=== PATIENT | male | born 1985 | race American Indian/Alaskan Native ===

== ENCOUNTER 2016-11-04 13:24 | Emergency (ER) | payer MEDICARE ==
[2016-11-04] MEDS ORDERED: PEPCID PO ONE (14:30)
[2016-11-04 16:59] LABS: Basophils % (Auto) 0.5 % (0.0-1.8); Eosinophils % (Auto) 13.7 % (0.0-4.3); Hematocrit 32.1 % (35.5-45.6); Hemoglobin 10.1 gm/dl (11.8-15.2); Mean Corpuscular HGB Conc 32 % (32-34); Mean Corpuscular Hemoglobin 31 pg (28-32); Mean Corpuscular Volume 97 fl (84-94); Platelet Count 145 K/mm3 (140-440); Red Cell Distribution Width 14.7 % (13.2-15.2); White Blood Count 7.3 K/mm3 (4.5-11.0)
--- NOTE | 2016-11-04 17:09 | Emergency Department Report ---
ED General Adult HPI - General Chief complaint: Chest Pain Stated complaint: ABD PAIN Time Seen by Provider: 11/04/16 14:23 Source: patient, EMS, RN notes reviewed Mode of arrival: Stretcher Limitations: Other (poor historian) - History of Present Illness Initial comments: primary care graphic specialist: Dr. Loepz Past medical history: Prader-Willi syndrome, diabetes, end-stage renal disease on dialysis, renal osteodystrophy, secondary hyperparathyroidism, mild chronic anemia, left upper extremity AV fistula This is a 31-year-old male. I have evaluated him in the past. Patient is brought to the hospital today by EMS for evaluation of chest pain. Patient indicates that his chest pain has resolved. It started at 8:00 in the morning. Patient indicates that he currently has no chest pain, nausea, vomiting. He also indicates no shortness of breath. Of note, patient has had similar presentations, and was evaluated for similar complaints to this in August 2016. As per documentation, "patient is a complaining of various elements to get attention." When I speak to the patient, he is smiling, laughing, and asking for something to eat. He indicates no vomiting, no shortness of breath, no chest pain, no abdominal pain. Symptoms have all resolved. He requested. -: This morning Location: abdomen Radiation: non-radiation Severity scale (0 -10): 6 Improves with: none Worsens with: none Associated Symptoms: denies other symptoms - Related Data Home Medications Medication Instructions Recorded Confirmed Last Taken Cinacalcet [Sensipar] 30 mg PO QDAY 07/19/13 11/04/16 07/18/13 22:00 Enalapril Maleate [Vasotec] 5 mg PO DAILY 07/19/13 11/04/16 07/18/13 22:00 Sevelamer Carbonate [Renvela] 800 mg PO TIDWM 07/19/13 11/04/16 07/18/13 22:00 Vitamin B Comp and C/FA/Zn Cit 0.8 mg PO DAILY 07/19/13 11/04/16 07/18/13 22:00 [Dialyvite 800 with Zinc] Ergocalciferol(Vitamin D2)(Nf) 1.25 mg pe PO DAILY 11/04/16 11/04/16 Unknown [Vitamin D (Nf)] Allergies Allergy/AdvReac Type Severity Reaction Status Date / Time No Known Allergies Allergy Unverified 11/04/16 14:07 ED Review of Systems ROS: Stated complaint: ABD PAIN Other details as noted in HPI Constitutional: denies: fever Eyes: denies: eye discharge ENT: denies: epistaxis Respiratory: denies: cough Cardiovascular: as per HPI Gastrointestinal: abdominal pain Genitourinary: as per HPI Musculoskeletal: denies: back pain Skin: denies: lesions Neurological: denies: weakness Psychiatric: as per HPI ED Past Medical Hx - Past Medical History Previous Medical History?: Yes Hx Hypertension: Yes Hx Diabetes: Yes Hx Renal Disease: Yes (graft left arm Sat) Hx Psychiatric Treatment: Yes (pearly-malgorzata syndrome) Additional medical history: Anemia. Ischemic heart disease. ESRD - Surgical History Past Surgical History?: Yes Additional Surgical History: graft left arm, denies abdominal surgeries - Social History Smoking Status: Unknown if ever smoked Substance Use Type: None - Medications Home Medications: Home Medications Medication Instructions Recorded Confirmed Last Taken Type Cinacalcet [Sensipar] 30 mg PO QDAY 07/19/13 11/04/16 07/18/13 22:00 History Enalapril Maleate [Vasotec] 5 mg PO DAILY 07/19/13 11/04/16 07/18/13 22:00 History Sevelamer Carbonate [Renvela] 800 mg PO TIDWM 07/19/13 11/04/16 07/18/13 22:00 History Vitamin B Comp and C/FA/Zn Cit 0.8 mg PO DAILY 07/19/13 11/04/16 07/18/13 22:00 History [Dialyvite 800 with Zinc] Ergocalciferol(Vitamin D2)(Nf) 1.25 mg pe PO DAILY 11/04/16 11/04/16 Unknown History [Vitamin D (Nf)] ED Physical Exam - General Limitations: Other (poor historian) General appearance: alert, in no apparent distress - Head Head exam: Present: atraumatic, normocephalic - Eye Eye exam: Present: normal appearance, EOMI. Absent: nystagmus - ENT ENT exam: Present: normal exam, normal orophraynx, mucous membranes moist, normal external ear exam - Neck Neck exam: Present: normal inspection, full ROM. Absent: tenderness, meningismus - Respiratory Respiratory exam: Present: normal lung sounds bilaterally. Absent: respiratory distress, wheezes, rales, rhonchi, stridor, decreased breath sounds - Cardiovascular Cardiovascular Exam: Present: regular rate, normal rhythm, normal heart sounds. Absent: bradycardia, tachycardia, irregular rhythm, systolic murmur, diastolic murmur, rubs, gallop - GI/Abdominal GI/Abdominal exam: Present: soft, normal bowel sounds. Absent: distended, guarding, rebound, rigid, pulsatile mass - Rectal Rectal exam: Present: deferred - Extremities Exam Extremities exam: Present: normal inspection, full ROM, normal capillary refill , pedal edema (I'll chronic pedal edema. No palpable cord. Negative Homans sign. Left upper extremity AV fistula appreciated. A positive thrill.). Absent: tenderness, calf tenderness - Back Exam Back exam: Present: normal inspection - Neurological Exam Neurological exam: Present: alert, other (Extraocular movements intact. Tongue midline. No facial droop. Facial sensation intact to light touch in the V1, V2 , V3 distribution bilaterally. 5 and 5 strength in 4 extremities.. Sensation is intact to light touch in 4 extremities.). Absent: motor sensory deficit - Psychiatric Psychiatric exam: Present: normal affect, normal mood - Skin Skin exam: Present: warm, dry, intact, normal color. Absent: rash ED Course Vital Signs 11/04/16 11/04/16 11/04/16 13:50 14:10 19:15 Temperature 98.6 F Pulse Rate 74 Respiratory 16 16 16 Rate Blood Pressure 159/77 Blood Pressure 159/77 112/72 [Right] O2 Sat by Pulse 100 100 95 Oximetry - Reevaluation(s) Reevaluation #1: 11/04/16 17:07 Differential diagnosis: GERD, gastritis, pneumonia, reflux, acute coronary syndrome, attention seeking behavior assessment and plan: 31-year-old male with resolved completely of epigastric discomfort. Has had a similar presentation in the past. He is afebrile with reassuring vital signs. He is clinically well-appearing, smiling, laughing, it indicates no distress. Found to be incidentally mildly hypoglycemic, is currently tolerating oral feeds. Laboratory studies were drawn within 8 hours after symptom onset. Patient was a difficult IV stick. Currently awaiting laboratory studies. There is no tachycardia, there is no hypoxia, there is no shortness of breath, lower extremities appear to be at baseline. Therefore think thromboembolic disease is unremarkable. Given that laboratory studies were drawn more than 8 hours after symptom onset, as per the [employer] clinical policy, myocardial infarction may be excluded with 1 set of cardiac enzymes. 11/04/16 17:10 Reevaluation #2: 11/04/16 18:21 repeat Accu-Cheks/fingerstick within normal limits. Patient resting comfortably. No active vomiting. Will be discharged. ED Medical Decision Making - Lab Data Result diagrams: 11/04/16 16:45 11/04/16 16:45 Vital Signs 11/04/16 11/04/16 13:50 14:10 Temperature 98.6 F Pulse Rate 74 Respiratory 16 16 Rate Blood Pressure 159/77 Blood Pressure 159/77 [Right] O2 Sat by Pulse 100 100 Oximetry Lab Results 11/04/16 11/04/16 11/04/16 Range/Units 16:45 16:45 16:56 WBC 7.3 (4.5-11.0) K/mm3 RBC 3.30 L (3.65-5.03) M/mm3 Hgb 10.1 L (11.8-15.2) gm/dl Hct 32.1 L (35.5-45.6) % MCV 97 H (84-94) fl MCH 31 (28-32) pg MCHC 32 (32-34) % RDW 14.7 (13.2-15.2) % Plt Count 145 (140-440) K/mm3 Lymph % (Auto) 29.0 (13.4-35.0) % [place] % (Auto) 8.7 H (0.0-7.3) % Eos % (Auto) 13.7 H (0.0-4.3) % Baso % (Auto) 0.5 (0.0-1.8) % Lymph # 2.1 (1.2-5.4) K/mm3 [place] # 0.6 (0.0-0.8) K/mm3 Eos # 1.0 H (0.0-0.4) K/mm3 Baso # 0.0 (0.0-0.1) K/mm3 Seg Neutrophils % 48.1 (40.0-70.0) % Seg Neutrophils # 3.5 (1.8-7.7) K/mm3 PT 13.3 (12.2-14.9) Sec. INR 1.02 (0.87-1.13) POC Glucose 68 L (70-105) - EKG Data -: EKG Interpreted by Me EKG shows normal: sinus rhythm, axis, intervals, QRS complexes, ST-T waves Rate: normal - EKG Data When compared to previous EKG there are: no significant change, changes noted Interpretation: unchanged when compared t (08/10/2016) - Radiology Data Radiology results: image reviewed interpreted by me: X-ray of the chest was negative Critical care attestation.: If time is entered above; I have spent that time in minutes in the direct care of this critically ill patient, excluding procedure time. ED Disposition Clinical Impression: ESRD (end stage renal disease) on dialysis, Epigastric abdominal pain Disposition: DISCHARGED TO HOME OR SELFCARE Is pt being admited?: No Does the pt Need Aspirin: No Condition: Stable Instructions: Chronic Kidney Disease (ED) Additional Instructions: Continue current outpatient medications. Follow up with her primary care doctor or graphic specialist within the next week. If chest pain persists, follow up with her vp data within the next week. Please note that blood pressure was elevated. This should be followed up by a primary care doctor or vp data or graphic specialist within the next 2 weeks. Long-term complications of hypertension/elevated blood pressure include stroke, heart attack, disability, , paralysis, loss of quality of life. Return to the ER right away with hip pain, worsened pain, migration of pain, fevers or chills, intractable nausea or vomiting, inability to tolerate liquid feeds. I have listed numerous names, phone numbers, addresses of local management development specialist for you to follow up with his Referrals: GARO NUNES MD [Primary Care Provider] - 3-5 Days RAUL CEVALLOS MD [Staff Physician] - 3-5 Days BARBARA GABRIEL MD [Staff Physician] - 3-5 Days LEX DONNELLY MD [Staff Physician] - 3-5 Days
[2016-11-04 17:10] LABS: INR 1.02 (0.87-1.13)
[2016-11-04 17:22] LABS: Albumin 3.6 g/dL (3.9-5); Albumin/Globulin Ratio 1.2 %; BUN/Creatinine Ratio 4.9; Bilirubin,Total 0.2 mg/dL (0.1-1.2); Calcium 8.7 mg/dL (8.4-10.2); Chloride 96.6 mmol/L (98-107); Potassium 3.9 mmol/L (3.6-5.0); Total Protein 6.5 g/dL (6.3-8.2)
[2016-11-04 19:17] VITALS: BP 112/72
--- NOTE | 2016-11-05 09:45 | XRay Report ---
ROUTINE CHEST, TWO VIEWS: HISTORY: chest pain. The trachea, heart, mediastinal contour, lung cortes and bony thorax are unremarkable. IMPRESSION: Unremarkable chest x-ray.
== END 2016-11-04 20:58 | disposition home or self-care (01) ==
LOC: ED 13:24
DX: I12.0 Hypertensive chronic kidney disease with stage 5 chronic kidney disease or end stage renal disease (principal); N18.6 End stage renal disease; R10.13 Epigastric pain; E11.9 Type 2 diabetes mellitus without complications; I25.9 Chronic ischemic heart disease, unspecified; Z99.2 Dependence on renal dialysis
CPT/HCPCS: 36415; 71020; 80053; 82962; 83690; 84484; 85025; 85610; 93005; 93010; 99285

== ENCOUNTER 2017-03-19 19:21 | Emergency (ER) | payer MEDICARE ==
[2017-03-19] MEDS ORDERED: LIDOCAINE VISCOUS 2% PO ONE (20:33)
[2017-03-19] MEDS ORDERED: ALUM-MAG HYDROX-SIMETH 200-200-20MG/5ML PO ONE (20:33)
[2017-03-19 21:02] LABS: BUN/Creatinine Ratio 3.87; Calcium 8.2 mg/dL (8.4-10.2); Chloride 100.5 mmol/L (98-107)
[2017-03-19 21:03] LABS: Basophils % (Auto) 0.6 % (0.0-1.8); Eosinophils % (Auto) 12.5 % (0.0-4.3); Hematocrit 37.3 % (35.5-45.6); Hemoglobin 11.8 gm/dl (11.8-15.2); Mean Corpuscular HGB Conc 32 % (32-34); Mean Corpuscular Hemoglobin 31 pg (28-32); Mean Corpuscular Volume 98 fl (84-94); Platelet Count 155 K/mm3 (140-440); Red Cell Distribution Width 15.4 % (13.2-15.2); White Blood Count 5.8 K/mm3 (4.5-11.0)
[2017-03-19 21:27] LABS: Potassium 5.1 mmol/L (3.6-5.0)
[2017-03-19 21:31] LABS: Alanine Aminotransferase 15 units/L (7-56); Albumin 3.4 g/dL (3.9-5); Albumin/Globulin Ratio 0.9 %; Alkaline Phosphatase 207 units/L (35-129); Lipase 53 units/L (13-60)
[2017-03-19 21:33] LABS: Bilirubin,Direct < 0.2 mg/dL (0-0.2); Bilirubin,Indirect 0.2 mg/dL
--- NOTE | 2017-03-19 21:55 | Emergency Department Report ---
ED Chest Pain HPI - General Chief Complaint: Chest Pain Stated Complaint: HEARTBURN/HEADACHE Time Seen by Provider: 03/19/17 20:19 Source: patient, EMS, RN notes reviewed Mode of arrival: Stretcher Limitations: Other - History of Present Illness Initial Comments: 31-year-old male with a past medical history of Luana Willi syndrome, end- stage renal disease on dialysis, diabetes, hypertension, anemia and hypothyroidism presents to the hospital with epigastric pain, chest pain, and throat pain. Symptoms started during dialysis. Patient completed dialysis prior to transport. Symptoms described as heartburn. Patient has limited ability to communicate due to chronic mental delay. Patient states he vomited twice a day. Denies shortness of breath, diarrhea, or fever. Severity scale (0 -10): 7 - Related Data Home Medications Medication Instructions Recorded Confirmed Last Taken Cinacalcet [Sensipar] 30 mg PO QDAY 07/19/13 11/04/16 07/18/13 22:00 Enalapril Maleate [Vasotec] 5 mg PO DAILY 07/19/13 11/04/16 07/18/13 22:00 Sevelamer Carbonate [Renvela] 800 mg PO TIDWM 07/19/13 11/04/16 07/18/13 22:00 Vitamin B Comp and C/FA/Zn Cit 0.8 mg PO DAILY 07/19/13 11/04/16 07/18/13 22:00 [Dialyvite 800 with Zinc] Ergocalciferol(Vitamin D2)(Nf) 1.25 mg pe PO DAILY 11/04/16 11/04/16 Unknown [Vitamin D (Nf)] Previous Rx's Medication Instructions Recorded Last Taken Type Famotidine [Pepcid] 20 mg PO BID #30 tablet 03/19/17 Unknown Rx Allergies Allergy/AdvReac Type Severity Reaction Status Date / Time No Known Allergies Allergy Unverified 11/04/16 14:07 Heart Score - HEART Score History: Slightly suspicious EKG: Normal Age: < 45 Risk factors: 1-2 risk factors Troponin: < normal limit HEART Score: 1 ED Review of Systems ROS: Stated complaint: HEARTBURN/HEADACHE Other details as noted in HPI Comment: All other systems reviewed and negative Other: Constitutional: No fevers chills Eyes: No eye pain visual changes ENT: No ear pain or throat pain Neck: Denies pain Respiratory: Denies cough wheezing shortness of breath Cardiovascular: As per HPI GI: As per HPI : Denies dysuria, urinary frequency, or urgency Musculoskeletal: Denies back pain, joint swelling Skin: Denies rash, lesions, erythema Neurologic: Denies headache, numbness, weakness Psychiatric: Denies suicidal ideation, hallucinations Hematological/lymphatic: Denies easy bruising, lymphadenopathy ED Past Medical Hx - Past Medical History Previous Medical History?: Yes Hx Hypertension: Yes Hx Diabetes: Yes Hx Renal Disease: Yes (graft left arm Sat) Hx Psychiatric Treatment: Yes (Luana Willi syndrome) Additional medical history: Anemia. ESRD. hypoparathyroidism - Surgical History Past Surgical History?: Yes Additional Surgical History: graft left arm, denies abdominal surgeries - Social History Smoking Status: Never Smoker Substance Use Type: Prescribed - Medications Home Medications: Home Medications Medication Instructions Recorded Confirmed Last Taken Type Cinacalcet [Sensipar] 30 mg PO QDAY 07/19/13 11/04/16 07/18/13 22:00 History Enalapril Maleate [Vasotec] 5 mg PO DAILY 07/19/13 11/04/16 07/18/13 22:00 History Sevelamer Carbonate [Renvela] 800 mg PO TIDWM 07/19/13 11/04/16 07/18/13 22:00 History Vitamin B Comp and C/FA/Zn Cit 0.8 mg PO DAILY 07/19/13 11/04/16 07/18/13 22:00 History [Dialyvite 800 with Zinc] Ergocalciferol(Vitamin D2)(Nf) 1.25 mg pe PO DAILY 11/04/16 11/04/16 Unknown History [Vitamin D (Nf)] Famotidine [Pepcid] 20 mg PO BID #30 tablet 03/19/17 Unknown Rx ED Physical Exam - General Limitations: Other - Other Other exam information: General: No limitations, patient is alert in no acute distress Head exam: Atraumatic, normocephalic Eyes exam: Normal appearance ENT: Moist mucous membrane, normal oropharynx Neck exam: Normal inspection, full range of motion, no meningismus nontender Respiratory exam: Clear to auscultation bilateral, no wheezes, rales, crackles. Anterior est wall tenderness to palpation Cardiovascular: Normal rate and rhythm, normal heart sounds Abdomen: Soft, nondistended, epigastric tenderness, with normal bowel sounds, no rebound, or guarding Extremity: Full range of motion normal inspection no deformity Back: Normal Inspection, full range of motion, no tenderness Neurologic: Alert, oriented x3, cranial nerves intact, no motor or sensory deficit Psychiatric: normal affect, normal mood Skin: Warm, dry, intact ED Course Vital Signs 03/19/17 03/19/17 03/19/17 19:46 19:50 20:00 Temperature Pulse Rate 76 68 71 Respiratory 15 13 22 Rate Blood Pressure 156/72 156/72 Blood Pressure [Right] O2 Sat by Pulse 98 97 97 Oximetry 03/19/17 03/19/17 03/19/17 20:03 20:10 20:20 Temperature 98.5 F Pulse Rate 85 80 71 Respiratory 20 16 13 Rate Blood Pressure 156/72 138/66 138/66 Blood Pressure 156/72 [Right] O2 Sat by Pulse 98 96 97 Oximetry 03/19/17 03/19/17 03/19/17 20:30 20:40 20:50 Temperature Pulse Rate 71 76 73 Respiratory 18 22 21 Rate Blood Pressure 138/66 138/66 155/85 Blood Pressure [Right] O2 Sat by Pulse 97 99 96 Oximetry 03/19/17 03/19/17 03/19/17 21:00 21:10 21:20 Temperature Pulse Rate 73 87 85 Respiratory 20 14 13 Rate Blood Pressure 155/85 154/61 176/90 Blood Pressure [Right] O2 Sat by Pulse 99 97 98 Oximetry 03/19/17 03/19/17 03/19/17 21:30 21:40 21:50 Temperature Pulse Rate 74 76 74 Respiratory 20 20 22 Rate Blood Pressure 154/61 164/89 148/67 Blood Pressure [Right] O2 Sat by Pulse 96 98 96 Oximetry 03/19/17 03/19/17 03/19/17 22:00 22:10 22:20 Temperature Pulse Rate 78 73 74 Respiratory 14 23 19 Rate Blood Pressure 176/90 153/63 137/78 Blood Pressure [Right] O2 Sat by Pulse 97 96 99 Oximetry 03/19/17 03/19/17 03/19/17 22:30 22:40 22:45 Temperature Pulse Rate 78 68 82 Respiratory 14 17 Rate Blood Pressure 137/78 143/66 Blood Pressure [Right] O2 Sat by Pulse 85 Oximetry 03/19/17 03/19/17 22:50 23:00 Temperature Pulse Rate 78 73 Respiratory 13 18 Rate Blood Pressure 138/58 138/58 Blood Pressure [Right] O2 Sat by Pulse 96 85 Oximetry - Reevaluation(s) Reevaluation #1: 03/19/17 21:57 Patient given viscous lidocaine and Maalox and reports improvement in symptoms. Patient ate a tray of food. Patient asked for more food. When told that he will be going home patient started complaining of hurting again and more food. - Consultations Consultation #1: 03/19/17 Case was discussed with Dr. Oliver. He was informed that patient will be discharged home the second enzyme was negative APPLE score - Apple Score Age > 65: (0) No Aspirin use within the Past 7 Days: (0) No 3 or more CAD Risk Factors: (0) No 2 or more Angina events in past 24 hrs: (0) No Known CAD with more than 50% Stenosis: (0) No ST Deviation Greater than 0.5mm: (0) No ED Medical Decision Making - Lab Data Result diagrams: 03/19/17 20:20 03/19/17 20:20 Lab Results 03/19/17 03/19/17 03/19/17 Range/Units 20:20 20:20 20:29 WBC 5.8 (4.5-11.0) K/mm3 RBC 3.80 (3.65-5.03) M/mm3 Hgb 11.8 (11.8-15.2) gm/dl Hct 37.3 (35.5-45.6) % MCV 98 H (84-94) fl MCH 31 (28-32) pg MCHC 32 (32-34) % RDW 15.4 H (13.2-15.2) % Plt Count 155 (140-440) K/mm3 Lymph % (Auto) 29.2 (13.4-35.0) % [place] % (Auto) 8.4 H (0.0-7.3) % Eos % (Auto) 12.5 H (0.0-4.3) % Baso % (Auto) 0.6 (0.0-1.8) % Lymph # 1.7 (1.2-5.4) K/mm3 [place] # 0.5 (0.0-0.8) K/mm3 Eos # 0.7 H (0.0-0.4) K/mm3 Baso # 0.0 (0.0-0.1) K/mm3 Seg Neutrophils % 49.3 (40.0-70.0) % Seg Neutrophils # 2.9 (1.8-7.7) K/mm3 Sodium 138 (137-145) mmol/L Potassium 5.1 H (3.6-5.0) mmol/L Chloride 100.5 (98-107) mmol/L Carbon Dioxide 23 (22-30) mmol/L Anion Gap 20 mmol/L BUN 19 (9-20) mg/dL Creatinine 4.9 H (0.8-1.5) mg/dL Estimated GFR 17 ml/min BUN/Creatinine Ratio 3.87 % Glucose 71 L (75-100) mg/dL Calcium 8.2 L (8.4-10.2) mg/dL Total Bilirubin 0.40 (0.1-1.2) mg/dL Direct Bilirubin < 0.2 (0-0.2) mg/dL Indirect Bilirubin 0.2 mg/dL AST 36 (5-40) units/L ALT 15 (7-56) units/L Alkaline Phosphatase 207 H (35-129) units/L Troponin T 0.013 (0.00-0.029) ng/mL Total Protein 7.0 (6.3-8.2) g/dL Albumin 3.4 L (3.9-5) g/dL Albumin/Globulin Ratio 0.9 % Lipase 53 (13-60) units/L //17 Range/Units 23:05 WBC (4.5-11.0) K/mm3 RBC (3.65-5.03) M/mm3 Hgb (11.8-15.2) gm/dl Hct (35.5-45.6) % MCV (84-94) fl MCH (28-32) pg MCHC (32-34) % RDW (13.2-15.2) % Plt Count (140-440) K/mm3 Lymph % (Auto) (13.4-35.0) % [place] % (Auto) (0.0-7.3) % Eos % (Auto) (0.0-4.3) % Baso % (Auto) (0.0-1.8) % Lymph # (1.2-5.4) K/mm3 [place] # (0.0-0.8) K/mm3 Eos # (0.0-0.4) K/mm3 Baso # (0.0-0.1) K/mm3 Seg Neutrophils % (40.0-70.0) % Seg Neutrophils # (1.8-7.7) K/mm3 Sodium (137-145) mmol/L Potassium (3.6-5.0) mmol/L Chloride (98-107) mmol/L Carbon Dioxide (22-30) mmol/L Anion Gap mmol/L BUN (9-20) mg/dL Creatinine (0.8-1.5) mg/dL Estimated GFR ml/min BUN/Creatinine Ratio % Glucose (75-100) mg/dL Calcium (8.4-10.2) mg/dL Total Bilirubin (0.1-1.2) mg/dL Direct Bilirubin (0-0.2) mg/dL Indirect Bilirubin mg/dL AST (5-40) units/L ALT (7-56) units/L Alkaline Phosphatase (35-129) units/L Troponin T 0.016 (0.00-0.029) ng/mL Total Protein (6.3-8.2) g/dL Albumin (3.9-5) g/dL Albumin/Globulin Ratio % Lipase (13-60) units/L - EKG Data -: EKG Interpreted by Me (sinus rate 72 with supraventricular complexes and frequent PVCs.) - EKG Data When compared to previous EKG there are: no significant change (compared to 09/2015) - Radiology Data Radiology results: image reviewed (chest x-ray portable: No acute findings) - Medical Decision Making Pain is atypical. No STEMI on EKG. Patient given 15 g of Kayexalate for mild elevation in potassium. Will be discharged home with follow-up - Differential Diagnosis GERD, [place], unstable angina, reflux Critical Care Time: No Critical care attestation.: If time is entered above; I have spent that time in minutes in the direct care of this critically ill patient, excluding procedure time. ED Disposition Clinical Impression: GERD (gastroesophageal reflux disease), Chest wall pain, End stage renal disease on dialysis, Hyperkalemia Disposition: TO HOME OR SELFCARE Is pt being admited?: No Does the pt Need Aspirin: No Condition: Stable Instructions: Chest Pain (ED), Gastroesophageal Reflux Disease (ED), Hyperkalemia (ED) Additional Instructions: Take the medication as prescribed. Return if symptoms worsen. Take Tylenol as needed for pain. Prescriptions: Famotidine [Pepcid] 20 mg PO BID #30 tablet Referrals: PRIMARY CARE, [Primary Care Provider] - 3-5 Days Time of Disposition: 23:54
[2017-03-19 23:17] VITALS: BP 138/58
[2017-03-19] MEDS ORDERED: KIONEX PO ONE (23:46)
--- NOTE | 2017-03-20 08:01 | XRay Report ---
AP CHEST: HISTORY: chest pain Mild cardiomegaly and pulmonary venous congestion have developed since 11/04/16 exam. The lungs are clear. No evidence for pneumonia, pleural effusion or pneumothorax. IMPRESSION: Mild cardiomegaly and pulmonary venous congestion but no CHF.
== END 2017-03-20 01:19 | disposition home or self-care (01) ==
LOC: ED 19:21
DX: K21.9 Gastro-esophageal reflux disease without esophagitis (principal); E87.5 Hyperkalemia; I12.0 Hypertensive chronic kidney disease with stage 5 chronic kidney disease or end stage renal disease; E11.22 Type 2 diabetes mellitus with diabetic chronic kidney disease; N18.6 End stage renal disease; R07.0 Pain in throat; E20.9 Hypoparathyroidism, unspecified; Z99.2 Dependence on renal dialysis
CPT/HCPCS: 36415; 71010; 80048; 80074; 83690; 84484; 85025; 93005; 93010; 99285

== ENCOUNTER 2017-10-05 18:07 | Emergency (ER) | payer MEDICARE ==
--- NOTE | 2017-10-05 22:24 | Emergency Department Report ---
ED ENT HPI - General Chief complaint: Sore Throat Stated complaint: CHEST PAIN/ACID REFLEX Time Seen by Provider: 10/05/17 21:29 Source: patient, EMS Mode of arrival: Stretcher Limitations: Other - History of Present Illness Initial comments: This is a pleasant 31-year-old male with a medical history significant for Prader-Willi syndrome and who has end-stage dialysis who did go to dialysis today and who reports having a sore throat for one week. The patient denies the following symptoms headache cough night sweats or chills but the patient does admit to fever. MD complaint: sore throat -: Gradual Location: throat Severity: moderate Quality: aching Consistency: constant Improves with: none Worsens with: none Context- Ear: recent illness Associated Symptoms: fever, pain with swallowing, sore throat. denies: cough, gum swelling, toothache, tinnitus, hearing loss, discharge from ear, rhinorrhea - Related Data Home Medications Medication Instructions Recorded Confirmed Last Taken Cinacalcet [Sensipar] 30 mg PO QDAY 07/19/13 11/04/16 07/18/13 22:00 Enalapril Maleate [Vasotec] 5 mg PO DAILY 07/19/13 11/04/16 07/18/13 22:00 Sevelamer Carbonate [Renvela] 800 mg PO TIDWM 07/19/13 11/04/16 07/18/13 22:00 Vit B Complx C/Folic Acid/Zinc 0.8 mg PO DAILY 07/19/13 11/04/16 07/18/13 22:00 [Dialyvite 800 with Zinc] Ergocalciferol(Vitamin D2)(Nf) 1.25 mg pe PO DAILY 11/04/16 11/04/16 Unknown [Vitamin D (Nf)] Previous Rx's Medication Instructions Recorded Last Taken Type Famotidine [Pepcid] 20 mg PO BID #30 tablet 03/19/17 Unknown Rx Amoxicillin 500 mg PO BID #20 capsule 10/06/17 Unknown Rx Allergies Allergy/AdvReac Type Severity Reaction Status Date / Time No Known Allergies Allergy Unverified 11/04/16 14:07 ED Dental HPI - General Chief complaint: Sore Throat Stated complaint: CHEST PAIN/ACID REFLEX Time Seen by Provider: 10/05/17 21:29 Source: patient, EMS Mode of arrival: Stretcher Limitations: Other - Related Data Home Medications Medication Instructions Recorded Confirmed Last Taken Cinacalcet [Sensipar] 30 mg PO QDAY 07/19/13 11/04/16 07/18/13 22:00 Enalapril Maleate [Vasotec] 5 mg PO DAILY 07/19/13 11/04/16 07/18/13 22:00 Sevelamer Carbonate [Renvela] 800 mg PO TIDWM 07/19/13 11/04/16 07/18/13 22:00 Vit B Complx C/Folic Acid/Zinc 0.8 mg PO DAILY 07/19/13 11/04/16 07/18/13 22:00 [Dialyvite 800 with Zinc] Ergocalciferol(Vitamin D2)(Nf) 1.25 mg pe PO DAILY 11/04/16 11/04/16 Unknown [Vitamin D (Nf)] Previous Rx's Medication Instructions Recorded Last Taken Type Famotidine [Pepcid] 20 mg PO BID #30 tablet 03/19/17 Unknown Rx Amoxicillin 500 mg PO BID #20 capsule 10/06/17 Unknown Rx Allergies Allergy/AdvReac Type Severity Reaction Status Date / Time No Known Allergies Allergy Unverified 11/04/16 14:07 ED Review of Systems ROS: Stated complaint: CHEST PAIN/ACID REFLEX Other details as noted in HPI Comment: All other systems reviewed and negative Constitutional: see HPI Eyes: as per HPI ENT: as per HPI Respiratory: see HPI. denies: cough Cardiovascular: as per HPI. denies: chest pain, palpitations Endocrine: see HPI Gastrointestinal: as per HPI Genitourinary: as per HPI Musculoskeletal: as per HPI Skin: as per HPI Neurological: as per HPI Psychiatric: as per HPI Hematological/Lymphatic: as per HPI ED Past Medical Hx - Past Medical History Hx Hypertension: Yes Hx Diabetes: Yes Hx Renal Disease: Yes (graft left arm Sun) Hx Psychiatric Treatment: Yes (Luana Willi syndrome) Additional medical history: Anemia. ESRD. hypoparathyroidism - Surgical History Additional Surgical History: graft left arm, denies abdominal surgeries - Social History Smoking Status: Never Smoker Substance Use Type: Prescribed - Medications Home Medications: Home Medications Medication Instructions Recorded Confirmed Last Taken Type Cinacalcet [Sensipar] 30 mg PO QDAY 07/19/13 11/04/16 07/18/13 22:00 History Enalapril Maleate [Vasotec] 5 mg PO DAILY 07/19/13 11/04/16 07/18/13 22:00 History Sevelamer Carbonate [Renvela] 800 mg PO TIDWM 07/19/13 11/04/16 07/18/13 22:00 History Vit B Complx C/Folic Acid/Zinc 0.8 mg PO DAILY 07/19/13 11/04/16 07/18/13 22:00 History [Dialyvite 800 with Zinc] Ergocalciferol(Vitamin D2)(Nf) 1.25 mg pe PO DAILY 11/04/16 11/04/16 Unknown History [Vitamin D (Nf)] Famotidine [Pepcid] 20 mg PO BID #30 tablet 03/19/17 Unknown Rx Amoxicillin 500 mg PO BID #20 capsule 10/06/17 Unknown Rx ED Physical Exam - General Limitations: Other (due to the genetic condition of the patient communication is limited.) General appearance: alert, in no apparent distress - Head Head exam: Present: atraumatic - Eye Eye exam: Present: normal appearance, PERRL, EOMI - ENT ENT exam: Present: other (some mild pharyngeal erythema is present) - Neck Neck exam: Present: normal inspection - Respiratory Respiratory exam: Present: normal lung sounds bilaterally - Cardiovascular Cardiovascular Exam: Present: regular rate - GI/Abdominal GI/Abdominal exam: Present: soft, normal bowel sounds - exam: Present: normal inspection - Extremities Exam Extremities exam: Present: normal inspection - Back Exam Back exam: Present: normal inspection - Neurological Exam Neurological exam: Present: alert - Skin Skin exam: Present: warm, dry, intact, normal color ED Course Vital Signs 10/05/17 21:08 Temperature 98.5 F Pulse Rate 115 H Respiratory 18 Rate O2 Sat by Pulse 98 Oximetry - Reevaluation(s) Reevaluation #1: 10/06/17 01:01 The patient does have some pharyngeal erythema. 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 Began putting several things in his mouth while he was here in the ER waiting. Even though strep test is negative here today, I will go ahead and empirically start him on amoxicillin 500 mg by mouth twice a day. He is to follow-up with his primary care doctor. Critical care attestation.: If time is entered above; I have spent that time in minutes in the direct care of this critically ill patient, excluding procedure time. ED Disposition Clinical Impression: Pharyngitis Qualifiers: Pharyngitis/tonsillitis etiology: unspecified etiology Qualified Code(s): J02.9 - Acute pharyngitis, unspecified Disposition: TO HOME OR SELFCARE Is pt being admited?: No Does the pt Need Aspirin: No Condition: Stable Instructions: Pharyngitis (ED) Additional Instructions: Rest, fluids, follow-up with her primary care doctor, return as needed. Prescriptions: Amoxicillin 500 mg PO BID #20 capsule Referrals: YUNG CASTRO MD [Primary Care Provider] - 3-5 Days
[2017-10-06 03:14] VITALS: BP 158/86
== END 2017-10-06 03:15 | disposition home or self-care (01) ==
LOC: ED 18:07
DX: J02.9 Acute pharyngitis, unspecified (principal); E11.22 Type 2 diabetes mellitus with diabetic chronic kidney disease; I12.0 Hypertensive chronic kidney disease with stage 5 chronic kidney disease or end stage renal disease; N18.6 End stage renal disease
CPT/HCPCS: 87116; 87430; 99283

== ENCOUNTER 2017-10-10 02:05 | Emergency (ER) | payer MEDICARE ==
[2017-10-10 07:28] LABS: Basophils % (Auto) 0.4 % (0.0-1.8); Eosinophils # (Auto) 0.6 K/mm3 (0.0-0.4); Eosinophils % (Auto) 7.5 % (0.0-4.3); Hematocrit 29.5 % (35.5-45.6); Hemoglobin 9.7 gm/dl (11.8-15.2); Lymphocytes # (Auto) 1.8 K/mm3 (1.2-5.4); Lymphocytes % (Auto) 23.7 % (13.4-35.0); Mean Corpuscular HGB Conc 33 % (32-34); Mean Corpuscular Hemoglobin 31 pg (28-32); Mean Corpuscular Volume 96 fl (84-94); Monocytes # (Auto) 0.6 K/mm3 (0.0-0.8); Monocytes % (Auto) 8.4 % (0.0-7.3); Platelet Count 138 K/mm3 (140-440); Red Blood Count 3.08 M/mm3 (3.65-5.03); Red Cell Distribution Width 15.7 % (13.2-15.2)
[2017-10-10 07:30] LABS: Calcium 7.3 mg/dL (8.4-10.2)
--- NOTE | 2017-10-10 08:20 | Emergency Department Report ---
ED General Adult HPI - General Chief complaint: Sore Throat Stated complaint: SORE THROAT Time Seen by Provider: 10/10/17 06:18 Source: family, EMS Mode of arrival: Ambulatory Limitations: Other - History of Present Illness Initial comments: Today's patient's dialysis today. He said a persistent sore throat for the past 3 days. He was prescribed Amoxil by one of my colleagues a few days ago. However the mother never picked up the prescription. She states that there was problems with the pharmacy. In any case in the interim his strep culture is negative. He said no fever or chills. A serum occasional nonproductive cough but no dyspnea. He has a history of Prader Willi syndrome and chronic renal insufficiency with cardiomyopathy -: Gradual, days(s) Severity scale (0 -10): 3 Consistency: intermittent Improves with: none Worsens with: none Associated Symptoms: denies other symptoms, cough Treatments Prior to Arrival: none - Related Data Home Medications Medication Instructions Recorded Confirmed Last Taken Cinacalcet [Sensipar] 30 mg PO QDAY 07/19/13 11/04/16 07/18/13 22:00 Enalapril Maleate [Vasotec] 5 mg PO DAILY 07/19/13 11/04/16 07/18/13 22:00 Sevelamer Carbonate [Renvela] 800 mg PO TIDWM 07/19/13 11/04/16 07/18/13 22:00 Vit B Complx C/Folic Acid/Zinc 0.8 mg PO DAILY 07/19/13 11/04/16 07/18/13 22:00 [Dialyvite 800 with Zinc] Ergocalciferol(Vitamin D2)(Nf) 1.25 mg pe PO DAILY 11/04/16 11/04/16 Unknown [Vitamin D (Nf)] Previous Rx's Medication Instructions Recorded Last Taken Type Famotidine [Pepcid] 20 mg PO BID #30 tablet 03/19/17 Unknown Rx Amoxicillin 500 mg PO BID #20 capsule 10/06/17 Unknown Rx Allergies Allergy/AdvReac Type Severity Reaction Status Date / Time No Known Allergies Allergy Unverified 11/04/16 14:07 ED Review of Systems ROS: Stated complaint: SORE THROAT Other details as noted in HPI Constitutional: denies: chills, fever Eyes: denies: eye pain, eye discharge, vision change ENT: as per HPI, throat pain. denies: ear pain Respiratory: denies: cough, shortness of breath, wheezing Cardiovascular: as per HPI. denies: chest pain, palpitations Endocrine: no symptoms reported Gastrointestinal: denies: abdominal pain, nausea, diarrhea Genitourinary: denies: urgency, dysuria Musculoskeletal: denies: back pain, joint swelling, arthralgia Skin: denies: rash, lesions Neurological: denies: headache, weakness, paresthesias Psychiatric: denies: anxiety, depression Hematological/Lymphatic: denies: easy bleeding, easy bruising ED Past Medical Hx - Past Medical History Previous Medical History?: Yes Hx Hypertension: Yes Hx Diabetes: Yes Hx Renal Disease: Yes (graft left arm Sun) Hx Psychiatric Treatment: Yes (Luana Willi syndrome) Additional medical history: Anemia. ESRD. hypoparathyroidism - Surgical History Past Surgical History?: Yes Additional Surgical History: graft left arm, denies abdominal surgeries - Social History Smoking Status: Never Smoker Substance Use Type: None - Medications Home Medications: Home Medications Medication Instructions Recorded Confirmed Last Taken Type Cinacalcet [Sensipar] 30 mg PO QDAY 07/19/13 11/04/16 07/18/13 22:00 History Enalapril Maleate [Vasotec] 5 mg PO DAILY 07/19/13 11/04/16 07/18/13 22:00 History Sevelamer Carbonate [Renvela] 800 mg PO TIDWM 07/19/13 11/04/16 07/18/13 22:00 History Vit B Complx C/Folic Acid/Zinc 0.8 mg PO DAILY 07/19/13 11/04/16 07/18/13 22:00 History [Dialyvite 800 with Zinc] Ergocalciferol(Vitamin D2)(Nf) 1.25 mg pe PO DAILY 11/04/16 11/04/16 Unknown History [Vitamin D (Nf)] Famotidine [Pepcid] 20 mg PO BID #30 tablet 03/19/17 Unknown Rx Amoxicillin 500 mg PO BID #20 capsule 10/06/17 Unknown Rx ED Physical Exam - General Limitations: Other General appearance: alert, in no apparent distress, obese - Head Head exam: Present: atraumatic, other (typical appearing for syndrome) - Eye Eye exam: Present: normal appearance. Absent: PERRL, EOMI, scleral icterus - ENT ENT exam: Present: mucous membranes moist, other (minimal erythema anterior pillar) - Neck Neck exam: Present: normal inspection. Absent: tenderness, meningismus - Respiratory Respiratory exam: Present: normal lung sounds bilaterally. Absent: respiratory distress - Cardiovascular Cardiovascular Exam: Present: regular rate, normal rhythm. Absent: systolic murmur, diastolic murmur, rubs, gallop - GI/Abdominal GI/Abdominal exam: Present: soft, normal bowel sounds. Absent: distended, tenderness, guarding, rebound, rigid - Rectal Rectal exam: Present: deferred - Extremities Exam Extremities exam: Present: other (edema probably some lymphedema) - Back Exam Back exam: Present: normal inspection. Absent: CVA tenderness (R), CVA tenderness (L) - Neurological Exam Neurological exam: Present: alert, oriented X3, CN II-XII intact. Absent: motor sensory deficit - Psychiatric Psychiatric exam: Present: normal affect, normal mood - Skin Skin exam: Present: warm, dry, intact, normal color. Absent: rash ED Course Vital Signs 10/10/17 02:36 Temperature 98.6 F Pulse Rate 80 Respiratory 18 Rate Blood Pressure 190/100 [Right] O2 Sat by Pulse 100 Oximetry - Reevaluation(s) Reevaluation #1: Patient is released to go to his regular scheduled dialysis. 10/10/17 08:21 ED Medical Decision Making - Lab Data Result diagrams: 10/10/17 06:52 10/10/17 06:52 Laboratory Results - last 24 hr 10/10/17 10/10/17 06:52 06:52 WBC 7.7 RBC 3.08 L Hgb 9.7 L Hct 29.5 L MCV 96 H MCH 31 MCHC 33 RDW 15.7 H Plt Count 138 L Lymph % (Auto) 23.7 Petroleum % (Auto) 8.4 H Eos % (Auto) 7.5 H Baso % (Auto) 0.4 Lymph # 1.8 Petroleum # 0.6 Eos # 0.6 H Baso # 0.0 Seg Neutrophils % 60.0 Seg Neutrophils # 4.6 Sodium 142 Potassium 4.5 Chloride 102.4 Carbon Dioxide 29 Anion Gap 15 BUN 39 H Creatinine 7.1 H Estimated GFR 11 BUN/Creatinine Ratio 5 Glucose 81 Calcium 7.3 L Phosphorus 4.00 Critical care attestation.: If time is entered above; I have spent that time in minutes in the direct care of this critically ill patient, excluding procedure time. ED Disposition Clinical Impression: End stage renal disease on dialysis, Sore throat Cardiomyopathy Qualifiers: Cardiomyopathy type: unspecified Qualified Code(s): I42.9 - Cardiomyopathy, unspecified Disposition: DC-01 TO HOME OR SELFCARE Is pt being admited?: No Does the pt Need Aspirin: No Condition: Stable Instructions: Chronic Kidney Disease (ED), Pharyngitis (ED) Additional Instructions: I would recommend lozenges for the sore throat. Follow-up with her usual physicians. Return any acute change or problem. Go to dialysis today. Referrals: YUNG CASTRO MD [Primary Care Provider] - 3-5 Days Time of Disposition: 08:23
[2017-10-10 08:54] VITALS: BP 161/77
== END 2017-10-10 09:01 | disposition home or self-care (01) ==
LOC: ED 02:05
DX: J02.9 Acute pharyngitis, unspecified (principal); E20.9 Hypoparathyroidism, unspecified; I42.9 Cardiomyopathy, unspecified; I12.0 Hypertensive chronic kidney disease with stage 5 chronic kidney disease or end stage renal disease; N18.6 End stage renal disease; E11.29 Type 2 diabetes mellitus with other diabetic kidney complication; Z99.2 Dependence on renal dialysis; Z86.2 Personal history of diseases of the blood and blood-forming organs and certain disorders involving the immune mechanism
CPT/HCPCS: 36415; 80048; 84100; 85025; 99283